=== PATIENT | male | born 1975 | race Caucasian/White ===

== ENCOUNTER 2023-04-03 11:43 | Emergency (ER) | payer SELFPAY ==
[2023-04-03 11:44] VITALS: BP 128/84; PULSE 65; O2SAT 97; BMI 22.3
--- NOTE | 2023-04-03 11:46 | XRR_ITS ---
PROCEDURE INFORMATION: Exam: XR Left Shoulder Exam date and time: 04/03/2023 12:00 PM Age: 48 years old Clinical indication: Injury or trauma; Fall; Blunt trauma (contusions or hematomas); Shoulder; Left TECHNIQUE: Imaging protocol: Radiologic exam of the left shoulder. Views: 2 or more views. COMPARISON: CR XR chest 1V portable [id number] 04/03/2023 12:00 PM FINDINGS: Bones/joints: Left glenohumeral fracture or dislocation is present. There is large displaced greater tuberosity fragment (comminuted) and the main portion of the humeral head is dislocated anteriorly relative to the glenoid. Soft tissues: No pathologic soft tissue calcifications are seen. XR/XR shoulder LT min 2V* [id number] IMPRESSION: Left humeral head fracture dislocation deformity.
--- NOTE | 2023-04-03 11:46 | XRR_ITS ---
PROCEDURE INFORMATION: Exam: XR Chest Exam date and time: 04/03/2023 12:00 PM Age: 48 years old Clinical indication: Injury or trauma; Fall; Blunt trauma (contusions or hematomas) TECHNIQUE: Imaging protocol: Radiologic exam of the chest. Views: 1 view. COMPARISON: CR XR shoulder LT min 2V* [id number] 04/03/2023 12:00 PM FINDINGS: Lungs: Lungs are clear. Pleural spaces: No significant pleural fluid. No pneumothorax detected. Heart/Mediastinum: Heart size within normal range. No pulmonary vascular congestion. Bones/joints: There is a fracture dislocation deformity involving the left humeral head and shoulder joint. XR/XR chest 1V portable [id number] IMPRESSION: 1. No acute cardiopulmonary abnormality detected on AP portable chest radiograph. 2. Fracture dislocation deformity of the left shoulder.
[2023-04-03] MEDS: HYDROmorphone 1 mg/mL INJ 1 mL IVP (12:02)
--- NOTE | 2023-04-03 12:04 | ED_ITS ---
HPI - Extremity Problem General: Chief complaint: Extremity Injury, Upper Stated complaint: FALL, L SHOULDER PAIN Time Seen by Provider: 04/03/23 11:46 Source: patient and EMS Mode of arrival: EMS Limitations: no limitations History of Present Illness: 48-year-old male who had fell off a roof roughly 17 foot he states on the mud. He states he landed on his left shoulder he is complaining of severe left shoulder pain not able to move his arm. He is in a c-collar denies any head or neck pain he has some left-sided flank pain as well. Denies any chest pain denies any shortness of breath. Associated symptoms: Deny chest pain, fever(s) or rash Review of Systems Const: Denies: fever(s), chills, body aches or change in appetite ENMT: Denies: throat pain or dental pain Card: Denies: chest pain Resp: Denies: dyspnea GI: Denies: abdominal pain, nausea, vomiting or diarrhea Musc: Reports: extremity pain; Denies: neck pain or back pain Skin/Breast: Denies: rash Neuro: Denies: headache(s) Physical Exam Const: COMMON NORMALS: no acute distress, patient oriented x3 and healthy appearing HENMT: COMMON NORMALS: normocephalic and atraumatic HEAD & SCALP: normocephalic and atraumatic Neck/C-Spine: COMMON NORMALS: full ROM and supple Chest: COMMONS NORMALS: normal inspection of the chest and normal palpation of entire chest wall Resp: COMMON NORMALS: normal respiratory effort, No retractions, No use of accessory muscles and clear to auscultation bilaterally AUSCULTATION: clear to auscultation bilaterally Cardio: COMMON NORMALS: regular rate, regular rhythm and No murmurs present (Cardio) RATE: regular rate RHYTHM: regular rhythm GI: COMMON NORMALS: Normal to inspection, nondistended, normoactive bowel sounds present, Soft to palpation, non-tender and no masses PALPATION: Yes Soft to palpation Extremity: NARRATIVE EXTREMITY EXAM: Tenderness over left shoulder Neuro: COMMON NORMALS: patient oriented x3, moves all extremities and no focal motor deficits Psych: COMMON NORMALS: mental status grossly normal, Normal thought process present and cooperative THOUGHT PROCESS: Normal thought process present Skin: COMMON NORMALS: no rashes or lesions noted and no wounds GENERAL SKIN EXAM: no rashes or lesions noted Procedures Orthopedic Joint Reduction Joint #1: Time Out Performed: Yes Side: left Joint Reduction Location: shoulder Analgesia: procedural sedation Shoulder Technique Used (if applicable): traction/counter-traction Post-reduction neuro exam: intact Post-reduction vascular: intact Post Reduction X-Ray Obtained: Yes Post Reduction X-Ray Results: reduced Splint Applied: Yes Patient Tolerated Procedure: well Procedural Sedation Indication: fracture/dislocation reduction ASA Class: I Time of Last PO Intake: 08:00 Preparation: color television console monitor applied and pulse oximeter IV Propofol dose (mg): 140 Patient Tolerated Procedure: well Complications: none Course Vital Signs: Vital signs: Vital Signs Pulse Rate 64 04/03/23 12:50 Respiratory Rate 17 04/03/23 12:50 Blood Pressure 124/81 04/03/23 12:50 Pulse Oximetry 98 04/03/23 12:50 Oxygen Delivery Me thod Nasal Cannula 04/03/23 12:50 Oxygen Flow Rate 2 04/03/23 12:50 MDM - Extremity (Nontraumatic) Medical Decision Making Patient presents after a fall he does have a dislocation of his left shoulder along with fracture did reduce his shoulder placing the splint does have a hemorrhagic contusion to oblique muscle we will prescribe him pain meds he is well-appearing here stable for discharge she is to follow-up with orthopedics return if worsening he understands agrees to plan. Medical Records I reviewed the patient's medical records. Lab Data Radiology Impressions Chest X-Ray 04/03/23 11:46 IMPRESSION: 1. No acute cardiopulmonary abnormality detected on AP portable chest radiograph. 2. Fracture dislocation deformity of the left shoulder. Shoulder X-Ray 04/03/23 12:36 IMPRESSION: Significantly improved glenohumeral alignment. Comminuted left humeral greater tuberosity fracture is again noted. Abdomen/Pelvis CT 04/03/23 12:47 IMPRESSION: 1. There is hemorrhagic contusion of the left internal oblique muscle at the left lateral abdominal wall. 2. No acute intraperitoneal abnormality detected. Shoulder CT 04/03/23 13:00 IMPRESSION: Comminuted greater tuberosity fracture of the proximal left humerus with major fragments in near anatomic alignment. There is currently normal alignment at the glenohumeral joint. All radiology interpretation(s) finalized by discharge Discharge Plan Discharge Patient Disposition: Home Clinical Impression: Dislocation of left shoulder joint Qualifiers: Encounter type: initial encounter Qualified Code(s): S43.005A - Unspecified dislocation of left shoulder joint, initial encounter Closed fracture of left proximal humerus Qualifiers: Encounter type: initial encounter Condition: Stable Prescriptions: New hydrocodone-acetaminophen 5-325 mg tablet 1 tab PO Q6H PRN (Reason: pain) Qty: 14 0RF Discharge Orders: Discharge ED (Routine); Ordered 04/03/23 Ordered By: Jose Guadalupe Calhoun Referrals: Dorene Santillan MD [Physician] - 1-3 days Discharge Diet: Advance as tolerated Discharge Activity: Resume usual activity Patient Instructions: Shoulder Dislocation (ED), Proximal Humerus Fracture (ED) Coding Level of Care Code ED Assistant Professor [employer] for Celia Edouard
--- NOTE | 2023-04-03 12:24 | PC.NURSE ---
pt placed on bedside cardiac and SpO2 monitoring.
--- NOTE | 2023-04-03 12:36 | XRR_ITS ---
PROCEDURE INFORMATION: Exam: XR Left Shoulder Exam date and time: 04/03/2023 12:44 PM Age: 48 years old Clinical indication: Pain; Shoulder; Left; Additional info: Post reduction TECHNIQUE: Imaging protocol: Radiologic exam of the left shoulder. Views: 1 view. COMPARISON: CR XR shoulder LT min 2V* [id number] 04/03/2023 12:00 PM FINDINGS: Bones/joints: A single AP view of the left shoulder demonstrates apparent church of the alignment between the humeral head and scapular glenoid. There is also much improved alignment between the humeral head and the greater tuberosity bone fragments associated with fracture. Anatomic alignment is seen at the AC joint. Soft tissues: No soft tissue gas identified. XR/XR shoulder LT 1V [id number] IMPRESSION: Significantly improved glenohumeral alignment. Comminuted left humeral greater tuberosity fracture is again noted.
[2023-04-03 12:42] VITALS: BP 140/89; PULSE 60; RESP 16
[2023-04-03] MEDS: propofol 10 mg/mL SDV 20 mL 100 MG IVP (12:42)
--- NOTE | 2023-04-03 12:44 | PC.NURSE ---
Propofol being administered by Dr Calhoun, additional 40mg given at this time for total of 140mg given by Dr Calhoun
[2023-04-03 12:47] VITALS: BP 148/89; PULSE 72; RESP 12; O2SAT 100
--- NOTE | 2023-04-03 12:47 | CTR_ITS ---
PROCEDURE INFORMATION: Exam: CT Abdomen And Pelvis With Contrast Exam date and time: 04/03/2023 1:23 PM Age: 48 years old Clinical indication: Blunt abdominal trauma. Left upper quadrant pain and left flank pain following injury sustained when patient fell. TECHNIQUE: Imaging protocol: Computed tomography of the abdomen and pelvis with contrast. Radiation optimization: All CT scans at this facility use at least one of these dose optimization techniques: automated exposure control; mA and/or kV adjustment per patient size (includes targeted exams where dose is matched to clinical indication); or iterative reconstruction. Contrast material: OMNI 350; Contrast volume: 100 ml; Contrast route: INTRAVENOUS (IV); COMPARISON: CR XR chest 1V portable [id number] 04/03/2023 12:00 PM RADIATION DOSE METRICS: Total DLP (mGy-cm): 776.14 FINDINGS: Liver: No acute abnormality or suspicious hepatic mass. Gallbladder and bile ducts: No gallbladder wall thickening, radiodense stones, or significant biliary duct dilation. Pancreas: No acute abnormality or obvious pancreatic duct dilation. Spleen: No acute abnormality of the spleen is seen. Adrenal glands: No suspicious adrenal masses. Kidneys and ureters: Symmetric renal parenchymal enhancement without hydronephrosis. No perinephric fluid. Stomach and bowel: No evidence of gastric outlet obstruction or bowel obstruction. Appendix: No evidence of appendicitis. Intraperitoneal space: No free intraperitoneal air, significant ascites, or localized fluid collections. Vasculature: Abdominal aorta has normal caliber. Lymph nodes: No enlarged lymph nodes. Urinary bladder: No significant bladder wall thickening. Reproductive: Visualized portions show no obvious acute abnormality. Bones/joints: No evidence of displaced fracture involving the lower ribs or the lumbar spine or pelvic bones. Soft tissues: There may be hemorrhagic contusion of the left internal oblique muscle of the left lateral abdominal wall. This is accentuated by patient positioning which produces laxity of the left lateral abdominal wall musculature. CT/CT abdomen pelvis w con* [id number] IMPRESSION: 1. There is hemorrhagic contusion of the left internal oblique muscle at the left lateral abdominal wall. 2. No acute intraperitoneal abnormality detected.
[2023-04-03 12:50] VITALS: BP 124/81; PULSE 64; RESP 17; O2SAT 98
--- NOTE | 2023-04-03 12:54 | PC.NURSE ---
Pt awake, alert, oriented x3. Shoulder immobilizer in placed, neurovascular intact.
--- NOTE | 2023-04-03 13:00 | CTR_ITS ---
PROCEDURE INFORMATION: Exam: CT Left Upper Extremity Without Contrast, Shoulder Exam date and time: 04/03/2023 1:19 PM Age: 48 years old Clinical indication: Injury or trauma; Fall; Other: Left shoulder pain TECHNIQUE: Imaging protocol: Computed tomography of the left upper extremity without contrast. Exam focused on the shoulder. Radiation optimization: All CT scans at this facility use at least one of these dose optimization techniques: automated exposure control; mA and/or kV adjustment per patient size (includes targeted exams where dose is matched to clinical indication); or iterative reconstruction. COMPARISON: CR XR shoulder LT 1V [id number] 04/03/2023 12:44 PM RADIATION DOSE METRICS: Total DLP (mGy-cm): 313.71 FINDINGS: Comminuted fracture involves the greater tuberosity of the left humeral head. Major fracture fragments are in near anatomic alignment. There is anatomic alignment between the humeral head and the glenoid. There is normal alignment at the AC joint. No obvious acute fracture of the left clavicle or of the left scapula is identified. CT/CT shoulder LT wo con* [id number] IMPRESSION: Comminuted greater tuberosity fracture of the proximal left humerus with major fragments in near anatomic alignment. There is currently normal alignment at the glenohumeral joint.
[2023-04-03] MEDS: iohexol 350 mg/mL 500 mL Btl (per mL) IV (13:38)
[2023-04-03 13:45] VITALS: BP 135/90; PULSE 75; RESP 14; O2SAT 99
[2023-04-03 14:25] VITALS: BP 130/83; PULSE 64; RESP 18; O2SAT 99
== END 2023-04-03 14:29 | disposition home or self-care (01) ==
PROVIDERS: Emergency Provider Emergency Medicine
DX: S43.005A Unspecified dislocation of left shoulder joint, initial encounter (principal); S42.252A Displaced fracture of greater tuberosity of left humerus, initial encounter for closed fracture; W13.2XXA Fall from, out of or through roof, initial encounter
CPT/HCPCS: 23665; 71045; 73020; 73030; 73200; 74177; 94799; 96374; 96375; 99152; 99285; J1170; J2704; Q9967